=== PATIENT | female | born 1970 | race American Indian/Alaskan Native ===

== ENCOUNTER 2016-12-26 19:52 | Emergency (ER) | payer OTHER ==
--- NOTE | 2016-12-26 19:55 | PDOC ---
History of Present Illness - General History Source: Patient Exam Limitations: No Limitations - History of Present Illness Initial Comments: 12/26/16 20:16 Patient is a 46 year old female with no significant past medical history who presents to the ED with head pain sent in from PCPs office for head CT. Patient states that she was at her sons baseball game yesterday and was sitting in a chair next to a wagon with baseball equipment. Patient states that the wagon had a heavy handle that fell on the top of her head and knocked off her glasses. Patient denies LOC, blurry vision or vomiting. Patient reports dull aching throbbing pain on the top of her head. She denies any palpable masses or tenderness of the head. Patient reports waves of nausea and generalized weakness. She reports increased dizziness when she stands up. PCP - Dr. Chaves <Carmina Saravia - Last Filed: 12/26/16 20:16> <Jordi Jefferson - Last Filed: 12/26/16 21:31> - General Chief Complaint: Injury Stated Complaint: CONCUSSION Time Seen by Provider: 12/26/16 19:54 Past History <Carmina Saravia - Last Filed: 12/26/16 20:16> <Jordi Jefferson - Last Filed: 12/26/16 21:31> - Past Medical History Allergies/Adverse Reactions: Allergies Allergy/AdvReac Type Severity Reaction Status Date / Time azithromycin Allergy Mild Rash Verified 12/26/16 20:44 Home Medications: Ambulatory Orders NK [No Known Home Medication] 12/26/16 Review of Systems - Review of Systems Able to Perform ROS?: Yes Comments:: 12/26/16 20:16 GENERAL/CONSTITUTIONAL: No fever or chills. No weakness. HEAD, EYES, EARS, NOSE AND THROAT: (+)head pressure pain. No change in vision. No ear pain or discharge. No sore throat. CARDIOVASCULAR: No chest pain or shortness of breath. RESPIRATORY: No cough, wheezing, or hemoptysis. GASTROINTESTINAL: No nausea, vomiting, diarrhea or constipation. GENITOURINARY: No dysuria, frequency, or change in urination. MUSCULOSKELETAL: No joint or muscle swelling or pain. No neck or back pain. SKIN: No rash NEUROLOGIC: No headache, vertigo, loss of consciousness, or change in strength/ sensation. ENDOCRINE: No increased thirst. No abnormal weight change. HEMATOLOGIC/LYMPHATIC: No anemia, easy bleeding, or history of blood clots. ALLERGIC/IMMUNOLOGIC: No hives or skin allergy. <Carmina Saravia - Last Filed: 12/26/16 20:16> *Physical Exam - Vital Signs Last Vital Signs Temp Pulse Resp BP Pulse Ox 97.9 F 50 L 15 113/76 100 12/26/16 19:53 12/26/16 19:53 12/26/16 19:53 12/26/16 19:53 12/26/16 19:53 - Physical Exam Comments: 12/26/16 20:17 GENERAL: Awake, alert, and fully oriented, in no acute distress HEAD: No signs of trauma EYES: PERRLA, EOMI, sclera anicteric, conjunctiva clear ENT: Auricles normal inspection, hearing grossly normal, nares patent, oropharynx clear without exudates. Moist mucosa NECK: Normal ROM, supple, no lymphadenopathy, JVD, or masses LUNGS: Breath sounds equal, clear to auscultation bilaterally. No wheezes, and no crackles HEART: Regular rate and rhythm, normal S1 and S2, no murmurs, rubs or gallops ABDOMEN: Soft, nontender, normoactive bowel sounds. No guarding, no rebound. No masses EXTREMITIES: Normal range of motion, no edema. No clubbing or cyanosis. No cords, erythema, or tenderness NEUROLOGICAL: Cranial nerves II through XII grossly intact. Normal speech, normal gait SKIN: Warm, Dry, normal turgor, no rashes or lesions noted. <Carmina Saravia - Last Filed: 12/26/16 20:16> Medical Decision Making - Medical Decision Making 12/26/16 20:17 46 year old female with no pmhx who presents to the ED with dull aching throbbing pain at the top of her head s/p metal wagon handle falling on top of her head. Patient was sent to the ED by Dr. Chaves. Patient will have a head CT to r/o bleed. <Carmina Saravia - Last Filed: 12/26/16 20:16> *DC/Admit/Observation/Transfer - Attestations Scribe Attestion: 12/26/16 20:18 Documentation prepared by ERINN Stark, acting as remote medical coder for Jordi Jefferson DO. <Carmina Saravia - Last Filed: 12/26/16 20:16> - Attestations Physician Attestion: 12/26/16 19:55 I, Dr. Jordi Jefferson, attest that this document has been prepared under my direction and personally reviewed by me in its entirety. I further attest, that it accurately reflects all work, treatment, procedures and medical decision -making performed by me. <Jordi Jefferson - Last Filed: 12/26/16 21:31> Diagnosis at time of Disposition: Injury of head Qualifiers: Encounter type: initial encounter Qualified Code(s): S09.90XA - Unspecified injury of head, initial encounter - Discharge Dispostion Disposition: HOME Condition at time of disposition: Good - Referrals Referrals: Clarissa Chaves MD [Primary Care Provider] - - Patient Instructions Printed Discharge Instructions: DI for Closed Head Injury Additional Instructions: Iris- So sorry that this happened to you. Your CT Scan is normal. So your symptoms should subside over the next week or so. Talk with your doctor about following up with a neurologist if this is not what happens. Return to us if any problems. Best- Dr. Jordi Jefferson
[2016-12-26 20:05] VITALS: BP 113/76; PULSE 50; TEMP 97.9; BMI 20.9
== END 2016-12-26 21:40 | disposition home or self-care (01) ==
LOC: FER 19:52
DX: S09.90XA Unspecified injury of head, initial encounter (principal); W20.8XXA Other cause of strike by thrown, projected or falling object, initial encounter; Y93.89 Activity, other specified; Y92.320 Baseball field as the place of occurrence of the external cause
CPT/HCPCS: 70450-TC; 84703; 99282-25